=== PATIENT | female | born 1980 | race Two or more races ===

== ENCOUNTER 2025-03-10 11:50 | Day surgery (SDC) | payer MEDICAID, SELFPAY ==
[2025-03-07 08:48] VITALS: BMI 32.8
--- NOTE | 2025-03-07 09:13 | EKG_ITS ---
[facility] Test Date: 2025-03-07 Pat Name: MEHREEN KOO Department: Room: - Gender: Female Student Ambassador: MOMO : 1980 Requested By: Morgan Arias Order Number: [id number] Reading MD: Morgan Arias Measurements Intervals [place] Rate: 64 P: 46 ND: 147 QRS: 29 QRSD: 97 T: 52 QT: 420 QTc: 434 Interpretive Statements SINUS RHYTHM No previous ECG available for comparison /store/S0/[id number].pdf
[2025-03-07 10:10] LABS: Collection Type, Urine Clean Catch
[2025-03-07 10:32] LABS: Basophils # (Auto) 0.1 Thou/mm3 (0.0-0.2); Basophils % (Auto) 1 % (0-2.5); Eosinophils # (Auto) 0.1 Thou/mm3 (0.0-0.5); Eosinophils % (Auto) 1 % (0-10); Hematocrit 39.4 % (36.0-46.0); Hemoglobin 13.2 g/dL (12.0-16.0); Immature Granulocytes % (Auto) 0 % (0-0); Immature Granulocytes Auto 0.01 Thou/mm3 (0.00-0.00); Lymphocytes # (Auto) 1.7 Thou/mm3 (1.0-4.8); Lymphocytes % (Auto) 30 % (10-50); Mean Corpuscular HGB Conc 33.5 g/dl (31.0-37.0); Mean Corpuscular Hemoglobin 26.2 pg (25.0-35.0); Mean Corpuscular Volume 78 fL (80-100); Monocytes # (Auto) 0.4 Thou/mm3 (0.0-0.8); Monocytes % (Auto) 7 % (0-12); Neutrophils # (Auto) 3.5 Thou/mm3 (1.8-7.7); Neutrophils % (Auto) 61 % (37-80); Nucleated Red Blood Cell % 0 /100 WBC (0); Platelet Count 295 Thou/mm3 (140-440); RDW Standard Deviation 50.3 fL (36.4-46.3); Red Blood Count 5.03 Miln/mm3 (4.00-5.20); White Blood Count 5.7 Thou/mm3 (3.6-11.0)
[2025-03-07 10:36] LABS: Bilirubin,Urine Negative (Negative); Blood,Urine 2+ (Negative); Clarity,Urine Clear (Clear/Hazy); Color,Urine Lt-Yellow (Lt Yel-Yel); Glucose, Urine Negative (Negative); Ketones,Urine Negative (Negative); Leukocyte Esterase,Urine Positive (Negative); Nitrite,Urine Negative (Negative); Protein,Urine Negative (Neg - Trace); RBC,Urine 3 /hpf (0-3); Specific Gravity,Urine 1.019 (1.001-1.035); Squamous Epithelial Cell,Urine 2 /hpf (0-5); Urobilinogen,Urine Negative mg/dL (0.0-1.0); WBC,Urine 15 /hpf (0-5)
[2025-03-07 10:38] LABS: Partial Thromboplastin Time 29.1 Seconds (22.0-36.0)
[2025-03-07 10:49] LABS: Alanine Aminotransferase 19 U/L (10-49); Albumin, Serum 4.3 gm/dL (3.5-5.0); Albumin/Globulin Ratio 1.7 (1.2-2.2); Alkaline Phosphatase 76 U/L (46-116); Anion Gap 8 (7-16); Aspartate Amino Transferase 21 U/L (0-34); BUN/Creatinine Ratio 26 Ratio (12-20); Bilirubin,Total 0.3 mg/dL (0.3-1.2); Blood Urea Nitrogen 18 mg/dL (9-23); Calcium 9.5 mg/dL (8.3-10.6); Calcium (Corrected) 9.5 mg/dL (8.5-10.1); Carbon Dioxide 28.9 mMol/L (20.0-31.0); Chloride 107 mMol/L (98-107); Creatinine (Component) 0.7 mg/dL (0.6-1.3); Estimated Creatinine Clearance 110.9 mL/min (>60); Globulin 2.5 gm/dL (2.3-3.5); Glucose 103 mg/dL (74-106); Osmolality,Calculated 288 (275-295); Potassium 4.6 mMol/L (3.4-5.1); Sodium 144 mMol/L (136-145); Total Protein 6.8 gm/dL (5.7-8.2); eGFR > 60 See Note
[2025-03-10] VITALS (9 sets, daily range): BP systolic 110–137; BP diastolic 62–83; PULSE 63–77; RESP 12–18; TEMP 36.4–36.9; O2SAT 96–100; BMI 33.6
--- NOTE | 2025-03-10 12:30 | SUR.PREOP ---
Pt. stated she drank about 4 ounces of water this morning at 0630. Dr. An made aware, states it is ok to proceed with surgery.
--- NOTE | 2025-03-10 15:20 | ESOP_ITS ---
Date of Procedure 03/10/25 Pre Op Diagnosis Mass with atypical cells right breast upper outer quadrant 11:00 Post Op Diagnosis Same. Procedure Ultrasound-guided localization and excision of the right breast mass at 11 o'clock position. On 03/10/2025 Findings This patient has had an irregular hypoechoic lesion with punctate microcalcification at 11 o'clock position in the right breast. This was removed in its entirety. Procedure Description The patient is interviewed in the preop area and site and side were marked. The procedure was discussed in great detail with the patient and the family member. All questions were answered and informed consent is obtained. Patient was then taken to the operating room and patient is positioned supine on the operating table. The general anesthesia was administered in a satisfactory manner. Realtime ultrasound is carried out and mass is identified and localized. Methylene blue is injected as a identification marker. Patient is prepped and draped in usual manner. The above-mentioned mass is identified again. Local anesthesia 0.5% Marcaine with epinephrine is infiltrated. Curvilinear transverse incision is made at 11 o'clock position. The upper and lower flaps were developed to the level of the breast and subcutaneous tissue. The flaps are extended medially and laterally. A margin is a included in the resection. Breast parenchymal incision is made and carried to the pectoral fascia in the circumferential manner. Hemostasis is achieved. The mass is removed in its entirety with a margin. The excision cavity is examined from the inside and there are no other masses. Hemostasis is achieved. Specimen is sent off for pathologic examination. The breast tissue and subcutaneous tissues approximated by 3-0 Vicryl interrupted stitches. Skin is approximated by 4-0 Monocryl continuous subcuticular stitches. Steritapes are applied. Patient tolerated the procedure very well complications none. Anesthesia GETA Drains None. Implants None. Pathology / specimen Other (Right breast mass at 11 o'clock position) Estimated Blood Loss 5 Condition Stable Disposition PACU Surgeon Morgan Arias MD Surgical Staff Operation Date: 03/10/25 14:30 Case Staff Anesthesiologist: Jonatan Schaffer RN First Assistant: Terri Garrett RN caddie supervisor Allyson DE LA TORRE caddie supervisor Manas Beatty surgical services assistant
--- NOTE | 2025-03-10 15:23 | SUR.PHASEI ---
1523: Pt. wakes to name then drifts back to sleep, vitals stable, breathing unlabored, no complaint of pain or nausea, dressing to right breast CDI, no active bleed noted, breast binder in place, report received from MD Schaffer and Emelia DE LA TORRE.
[2025-03-10] MEDS: HYDROcodone/APAP 10/325 TAB PO (16:29)
--- NOTE | 2025-03-10 16:35 | SUR.PHASEII ---
1635: Pt. AAOx4, vitals stable, breathing unlabored, no complaint of pain or nausea, dressing to right breast CDI, no active bleed noted, breast binder in place, pt. tolerated sips of water well, pt. ambulated to wheelchair with steady gait and no assist, no complications. Gave discharge instructions to the pt. and her ride, both verbalized understanding and had no further questions. Pt. left with all personal belongings.
== END 2025-03-10 16:35 | disposition home or self-care (01) ==
PROVIDERS: Referring Provider Specialist; Visit Provider Specialist
PROC: (CPT 19301; principal; 2025-03-10 14:15)
DX: N63.11 Unspecified lump in the right breast, upper outer quadrant (principal); Z90.710 Acquired absence of both cervix and uterus
CPT/HCPCS: 19125; 36415; 80053; 81001; 85025; 85730; 93005; A4217; A4649; J0690; J1100; J1885; J2250; J2405; J2704; J3010; J3490; Q9968; A9270